=== PATIENT | male | born 1960 | race Caucasian/White ===

== ENCOUNTER 2024-04-10 08:08 | Emergency (ER) | payer MEDICAID ==
[~2024-04-10] VITALS: Ht 170.2 cm; Wt 82.0 kg
[2024-04-10 08:11] VITALS: O2SAT 98
[2024-04-10 08:54] LABS: BASOPHILS % 1.1 % (0.0-2.0); EOSINOPHILS % 1.4 % (0.0-5.0); HEMATOCRIT. 39.8 % (42.0-52.0); LYMPHOCYTES % 14.2 % (20.0-50.0); MEAN CORPUSCULAR HEMOGLOBIN 27.9 pg (28.0-32.0); MEAN CORPUSCULAR HGB CONC 32.8 g/dL (31.0-37.0); MEAN CORPUSCULAR VOLUME 85.1 fL (80.0-94.0); MEAN PLATELET VOLUME 7.1 fl (7.4-10.4); MONOCYTES % 9.6 % (2.0-8.0); NEUTROPHILS % 73.7 % (40.0-76.0); PLATELET 592 x1000/uL (130-400); RED BLOOD CELL COUNT 4.67 mill/uL (4.7-6.1); RED CELL DISTRIBUTION WIDTH 17.1 % (11.6-14.6); WHITE BLOOD COUNT 8.7 x1000/uL (4.5-11.0)
[2024-04-10 09:03] LABS: CARBON DIOXIDE 19 mEq/L (21-32)
[2024-04-10 09:04] LABS: CALCIUM 9.7 mg/dL (8.7-10.4); CHLORIDE 104 mEq/L (98-107); POTASSIUM 4.2 mEq/L (3.5-5.1); SODIUM 136 mEq/L (136-145)
[2024-04-10 09:08] LABS: CREATININE 2.8 mg/dL (0.6-1.3)
[2024-04-10 09:09] LABS: GLUCOSE 103 mg/dL (70-105); UREA NITROGEN BLOOD 18 mg/dL (9-23)
[2024-04-10 09:10] LABS: ALANINE AMINOTRANSFERASE 11 IU/L (10-49)
[2024-04-10 09:11] LABS: ALBUMIN 4.9 g/dL (3.2-4.8); ASPARTATE AMINOTRANSFERASE 21 IU/L (<34); BILIRUBIN DIRECT 0.2 mg/dL (<=3.0); BILIRUBIN TOTAL 0.7 mg/dL (0.1-1.0); PROTEIN TOTAL 7.5 g/dL (6.0-8.3)
[2024-04-10] MEDS: ACETAMINOPHEN 1000MG/100ML 100 ML IV ONE (09:23)
[2024-04-10] MEDS: KETOROLAC 30MG/ML VIAL IV ONE (09:23)
[2024-04-10 09:29] LABS: ETHANOL BLOOD < 10 mg/dL (<10)
[2024-04-10 09:46] LABS: PROTHROMBIN TIME 11.5 sec (9.6-11.0)
[2024-04-10] MEDS: CHLORPROMAZINE HCL 25 MG TABLET PO SCH (21:56)
[2024-04-11 11:44] VITALS: BP 110/70; PULSE 65; RESP 14; TEMP 98.3
== END 2024-04-11 14:25 | disposition home or self-care (01) ==
LOC: ER 08:35
DX: R10.9 Unspecified abdominal pain (principal); F15.90 Other stimulant use, unspecified, uncomplicated; F12.90 Cannabis use, unspecified, uncomplicated; N28.9 Disorder of kidney and ureter, unspecified; Z20.822 Contact with and (suspected) exposure to COVID-19
CPT/HCPCS: 80076; 80048; 80307; 80329; 80320; 83690; 85025; 85610; 36415; 74176; 96374; 96375; 99285; 87426; Q0161 ×2; J1885; Z7610 ×5; G0480; J0131

== ENCOUNTER 2025-08-16 20:39 | Emergency (ER) | payer MEDICAID ==
[~2025-08-16] VITALS: Ht 167.6 cm; Wt 70.0 kg
[~2025-08-16 20:39] MED LIST: RISP4TAB31 PO; SERT50TA PO
[2025-08-16 20:43] VITALS: O2SAT 100
[2025-08-16 21:55] LABS: CLARITY URINE CLEAR (CLEAR); GLUCOSE URINE NEGATIVE (NEGATIVE); KETONES URINE NEGATIVE (NEGATIVE); LEUKOCYTE ESTERASE URINE NEGATIVE (NEGATIVE); NITRITE URINE NEGATIVE (NEGATIVE); OCCULT BLOOD URINE TRACE (NEGATIVE); PH URINE 6.0 (4.5-8.0); PROTEIN URINE TRACE (NEGATIVE); SPECIFIC GRAVITY URINE 1.013 (1.005-1.030); UROBILINOGEN URINE 0.2 E.U./dL (0.2-1.0)
[2025-08-16 22:06] LABS: *AMPHETAMINES SCREEN URINE PRESUMPTIVE POSITIVE (NEGATIVE); *BARBITURATES SCREEN URINE NEGATIVE (NEGATIVE); *BENZODIAZEPINES SCREEN URINE NEGATIVE (NEGATIVE); *COCAINE SCREEN URINE NEGATIVE (NEGATIVE); CANNABINOID URINE SCREEN NEGATIVE (NEGATIVE); ECSTASY MDMA SCREEN URINE NEGATIVE (NEGATIVE); METHADONE URINE SCREEN NEGATIVE (NEGATIVE); OPIATES URINE SCREEN NEGATIVE (NEGATIVE); PHENCYCLIDINE URINE SCREEN NEGATIVE (NEGATIVE)
[2025-08-16 22:14] LABS: BASOPHILS % 0.9 % (0.0-2.0); EOSINOPHILS % 1.7 % (0.0-5.0); HEMATOCRIT. 40.1 % (42.0-52.0); HEMOGLOBIN. 12.9 g/dL (14.0-18.0); LYMPHOCYTES % 19.3 % (20.0-50.0); MEAN PLATELET VOLUME 7.7 fl (7.4-10.4); MONOCYTES % 13.1 % (2.0-8.0); NEUTROPHILS % 65.0 % (40.0-76.0); PLATELET 297 x1000/uL (130-400); RED BLOOD CELL COUNT 4.57 mill/uL (4.7-6.1); RED CELL DISTRIBUTION WIDTH 16.3 % (11.6-14.6)
[2025-08-16 22:20] LABS: COLOR URINE STRAW (YELLOW)
[2025-08-16 22:21] LABS: BACTERIA URINE NONE SEEN; RBC URINE 0-2 /hpf (0-2); SQUAMOUS EPITHELIAL CELL URINE RARE /lpf (RARE/1+); WBC URINE NONE SEEN /hpf (0-2)
[2025-08-16] MEDS: LORAZEPAM 1MG TABLET PO ONE (22:37)
[2025-08-16 22:38] LABS: CREATININE 1.7 mg/dL (0.6-1.3)
[2025-08-16 22:39] LABS: ETHANOL BLOOD < 10 mg/dL (<10); UREA NITROGEN BLOOD 16.0 mg/dL (9-23)
[2025-08-16 22:40] LABS: TROPONIN I HIGH SENSITIVITY 5 ng/L (3.0-53)
[2025-08-17] MEDS: AMLODIPINE 5MG TABLET PO ONE (10:45)
[2025-08-17] MEDS: RISPERIDONE 0.5MG TABLET PO SCH (11:52)
[2025-08-17 13:47] VITALS: BP 146/95; PULSE 72; RESP 18; TEMP 37; O2SAT 100
== END 2025-08-17 14:12 | disposition short-term general hospital (02) ==
LOC: ER 20:39
DX: F20.9 Schizophrenia, unspecified (principal); F31.9 Bipolar disorder, unspecified; F41.9 Anxiety disorder, unspecified; F17.200 Nicotine dependence, unspecified, uncomplicated; Z20.822 Contact with and (suspected) exposure to COVID-19; Z79.899 Other long term (current) drug therapy
CPT/HCPCS: 36415; 71045; 80048; 80305; 80307; 80320; 80329; 81003; 84484; 85025; 86592; 87426; 93005; 99285; G0480